=== PATIENT | female | born 1980 | race Caucasian/White ===

== ENCOUNTER 2021-09-27 05:59 | Emergency (ER) | payer MEDICAID ==
[~2021-09-27] VITALS: Ht 170.2 cm; Wt 60.0 kg
--- NOTE | 2021-09-27 06:31 | ED.ADGEN ---
General Adult EDM: Chief Complaint: DRUG ABUSE HPI: HPI: Patient is a 41-year-old female who arrives via EMS after reportedly smoking synthetic marijuana. Patient reports this may have been K2 however she is unable to interpret what exactly she smoked. Patient states this occurred 1 hour prior to arrival. At this time the patient states she is feeling simply tired. She denies pain, illness or prodromal symptoms related to her presentation. Moreover she denies pain in any suicidal or homicidal ideation. The patient is somnolent and cooperative however she is having difficulty remaining alert. She is however maintaining her airway without difficulty Review of Systems: Review of Systems: Constitutional: Reports fatigue. Eyes: Denies change in visual acuity. [] HENT: Denies nasal congestion or sore throat. [] Respiratory: Denies cough or shortness of breath. [] Cardiovascular: Denies chest pain or edema. [] GI: Denies abdominal pain, nausea, vomiting, bloody stools or diarrhea. [] : Denies dysuria. [] Musculoskeletal: Denies back pain or joint pain. [] Integument: Denies rash. [] Neurologic: Denies headache, focal weakness or sensory changes. [] Endocrine: Denies polyuria or polydipsia. [] Lymphatic: Denies swollen glands. [] Psychiatric: Denies depression or anxiety. [] Allergies: Allergies: Allergies Coded Allergies Type Severity Reaction Last Updated Verified meperidine Allergy Unknown 09/27/21 Yes Physical Exam: PE: Constitutional: Patient demonstrates impairment related to illicit substance use. Patient is somnolent however does awaken with verbal prompting.. [] HENT: Normocephalic, atraumatic, bilateral external ears normal, oropharynx moist, no oral exudates, nose normal. [] Eyes: PERRLA, EOMI, conjunctiva normal, no discharge. [] Neck: Normal range of motion, no tenderness, supple, no stridor. [] Cardiovascular:Heart rate regular rhythm, no murmur [] Lungs & Thorax: Bilateral breath sounds clear to auscultation [] Abdomen: Bowel sounds normal, soft, no tenderness, no masses, no pulsatile masses. [] Skin: Warm, dry, no erythema, no rash. [] Back: No tenderness, no CVA tenderness. [] Extremities: No tenderness, no cyanosis, no clubbing, ROM intact, no edema. [] Neurologic: Patient demonstrates impairment related to illicit substance abuse. There is mild slurring of her speech without neurological deficit otherwise. Alert and oriented X 3, normal motor function, normal sensory function, no focal deficits noted. [] Psychologic: Affect normal, judgement normal, mood normal. [] Current Patient Data: Vital Signs: Vital Signs Date Time Temp Pulse Resp B/P (MAP) Pulse Ox O2 Delivery O2 Flow Rate FiO2 09/27/21 10:19 98.0 72 17 146/84 (104) 100 98.0 09/27/21 09:00 Room Air EKG: EKG: [] Heart Score: C/O Chest Pain: No Risk Factors: Risk Factors: DM, Current or recent (<one month) smoker, HTN, HLP, family history of CAD, obesity. Risk Scores: Score 0 - 3: 2.5% MACE over next 6 weeks - Discharge Home Score 4 - 6: 20.3% MACE over next 6 weeks - Admit for Clinical Observation Score 7 - 10: 72.7% MACE over next 6 weeks - Early Invasive Strategies Radiology/Procedures: Radiology/Procedures: [] Course & Med Decision Making: Course & Med Decision Making Pertinent Labs and Imaging studies reviewed. (See chart for details) The patient has awaken from her nap and is feeling much better. I have advised against smoking any further substances that may have an adverse reaction with respect to her general health. The patient understands and has agreed to do so. He is nontoxic-appearing and resting comfortably now. She stable for disch arge [] Kee Disclaimer: Kee Disclaimer: This electronic medical record was generated, in whole or in part, using a voice recognition dictation system. Departure Departure Impression: Primary Impression: Adverse effect of cannabis, initial encounter Disposition: HOME / SELF CARE / HOMELESS Condition: STABLE Patient Instructions: Marijuana Abuse and Chemical Dependency JESI YAO DO Sep 27, 2021 06:31
[2021-09-27 10:19] VITALS: BP 146/84
== END 2021-09-27 11:25 | disposition home or self-care (01) ==
LOC: ER 05:59
DX: R53.83 Other fatigue (principal); T40.715A Adverse effect of cannabis, initial encounter; Z88.1 Allergy status to other antibiotic agents; Y92.89 Other specified places as the place of occurrence of the external cause
CPT/HCPCS: 99285-25

== ENCOUNTER 2021-09-29 02:58 | Emergency (ER) | payer MEDICAID | END 2021-09-29 04:03 | disposition left against medical advice (07) | LOC: ER 02:58 | DX: Z53.21 Procedure and treatment not carried out due to patient leaving prior to being seen by health care provider (principal) ==